=== PATIENT | female | born 1965 | race Two or more races ===

== ENCOUNTER 2019-12-17 14:37 | Emergency (ER) | payer OTHER ==
[~2019-12-17] VITALS: Ht 170.2 cm; Wt 94.8 kg
[~2019-12-17 14:37] MED LIST: VISTARIL25 MG PO
[2019-12-17] MEDS ORDERED: FORTAMET500 MG (14:48)
[2019-12-17] MEDS ORDERED: TENORMIN50 M1 (14:49)
[2019-12-17] MEDS ORDERED: DICLOFENAC SODI75 MG PO (16:20)
== END 2019-12-17 16:32 | disposition home or self-care (01) ==
LOC: ER 14:37
DX: M75.81 Other shoulder lesions, right shoulder (principal); M25.511 Pain in right shoulder

== ENCOUNTER 2020-02-02 16:39 | Emergency (ER) | payer OTHER ==
[~2020-02-02] VITALS: Ht 152.4 cm; Wt 99.8 kg
[~2020-02-02 16:39] MED LIST changes: +DICLOFENAC SODI75 MG PO; +FORTAMET500 MG; +TENORMIN50 M1
== END 2020-02-02 19:28 | disposition home or self-care (01) ==
LOC: ER 16:39
DX: E11.65 Type 2 diabetes mellitus with hyperglycemia (principal); Z79.84 Long term (current) use of oral hypoglycemic drugs

== ENCOUNTER 2020-03-11 12:27 | Emergency (ER) | payer OTHER ==
[~2020-03-11] VITALS: Ht 170.2 cm; Wt 96.6 kg
== END 2020-03-11 19:37 | disposition home or self-care (01) ==
LOC: ER 12:27
DX: R01.1 Cardiac murmur, unspecified (principal); R42 Dizziness and giddiness

== ENCOUNTER 2022-03-18 14:57 | Emergency (ER) | payer OTHER ==
[~2022-03-18] VITALS: Ht 170.2 cm; Wt 97.1 kg
== END 2022-03-18 19:28 | disposition home or self-care (01) ==
LOC: ER 14:57
DX: U07.1 COVID-19 (principal); Z88.8 Allergy status to other drugs, medicaments and biological substances; E11.9 Type 2 diabetes mellitus without complications; Z79.84 Long term (current) use of oral hypoglycemic drugs; I10 Essential (primary) hypertension

== ENCOUNTER 2022-04-05 21:10 | Emergency (ER) | payer OTHER ==
[~2022-04-05] VITALS: Ht 167.6 cm; Wt 95.3 kg
[2022-04-05] MEDS ORDERED: DRAMAMINE LESS25 MG PO (22:46)
== END 2022-04-05 22:52 | disposition home or self-care (01) ==
LOC: ER 21:10
DX: E11.65 Type 2 diabetes mellitus with hyperglycemia (principal); Z79.84 Long term (current) use of oral hypoglycemic drugs; R42 Dizziness and giddiness; I10 Essential (primary) hypertension

== ENCOUNTER → 2025-07-07 | Emergency (ER) | payer OTHER ==
[~2025-07-07] VITALS: Ht 170.2 cm; Wt 88.5 kg
[~2025-07-07] MED LIST changes: +ASPIRIN 325 MG TABLET.EC PO STA; +CLOPIDOGREL BISULFATE 75 MG TABLET PO ONE; +CLOPIDOGREL BISULFATE 75 MG TABLET PO STA; +DRAMAMINE LESS25 MG PO; +HEPARIN SODIUM,PORCINE 5,000 UNITS/ML VIAL IV STA; +HEPARIN SODIUM,PORCINE 5,000 UNITS/ML VIAL ONE; +NITROGLYCERIN IN 5 % DEXTROSE 50 MG/250 ML BOTTLE IV ONE; +NITROGLYCERIN IN 5 % DEXTROSE 50 MG/250 ML KIT IV SCH
[2025-07-07 18:57] VITALS: BP 128/77; O2SAT 99
[2025-07-07 20:46] LABS: BASO % 0.4 % (0.1-1.2); EOS # 0.04 (0.04-0.54); EOS % 0.3 % (0.7-7.0); LYMPH # 3.35 (1.18-3.74); LYMPH % 27.8 % (19.3-53.1); MEAN PLATELET VOLUME 12.60 fl (9.4-12.4); MONO # 0.61 (0.24-0.82); MONO % 5.1 % (4.7-12.5); NEUT # 7.95 (1.56-6.13); NEUT % 66.1 % (34.0-71.1); RED CELL DISTRIBUTION WIDTH 13.2 % (11.6-14.4)
[2025-07-07 21:12] LABS: ALT/SGPT 31.0 U/L (12-78); AST/SGOT 122.0 U/L (15-37); BILIRUBIN TOTAL 0.28 mg/dL (0.3-1.2); BUN CREA RATIO 11.0 (7.0-25.0); CREATININE SERUM 0.98 mg/dL (0.55-1.02); GFR 58.29; GLOBULINA 3.7 G/DL (2.4-3.5); OSMOLALITY SERUM 291.0 MOSM/KG (275-295)
[2025-07-07 21:16] LABS: GLUCOSE FASTING 314.0 mg/dL (65-100)
== END | disposition designated cancer center or children's hospital (05) ==
LOC: ER 16:07
PROVIDERS: General Practice
DX: R07.9 Chest pain, unspecified (principal)